=== PATIENT | male | born 1995 | race Caucasian/White ===

== ENCOUNTER 2024-12-31 07:00 | Emergency (ER) | payer SELFPAY ==
[2024-12-31] MEDS ORDERED: Ondansetron PF 4 MG/2 ML Vial ONE (07:29)
[2024-12-31 07:32] LABS: #Basophils 0.2 thou/uL (0.0-0.2); #Eosinophils 0.2 thou/uL (0.0-0.7); #Lymphocytes 3.3 thou/uL (1.20-3.40); #Monocytes 0.6 thou/uL (0.11-0.59); #Neutrophils 4.7 thou/uL (1.40-6.50); %Basophils 1.8 % (0.0-1.0); %Eosinophils 2.7 % (0.0-10.0); %Lymphocytes 36.6 % (21.0-51.0); %Monocytes 6.6 % (0.0-10.0); %Neutrophils 52.3 % (42.0-75.0); Hematocrit 40.5 % (42.0-52.0); Hemoglobin 14.4 g/dL (14.0-18.0); Mean Corpuscular Hemoglobin 28.6 pg (27.0-31.0); Mean Corpuscular Volume 80.4 fl (78.0-98.0); Platelet Count 271 10x3/uL (130-400); Red Blood Cell (RBC) Count 5.03 mill/uL (4.70-6.10); White Blood Cell (WBC) Count 8.9 10x3/uL (4.8-10.8)
[2024-12-31] MEDS ORDERED: Pantoprazole 40 MG VIAL ONE (07:40)
[2024-12-31 07:46] LABS: ALT (SGPT) 15 U/L (Less than 45); AST (SGOT) 22 U/L (11-34); Albumin 4.1 g/dL (3.1-4.5); Alkaline Phosphatase 72 U/L (40-110); Anion Gap 18 mmol/L (10-20); BUN (Urea Nitrogen) 11 mg/dL (8.9-20.6); Bilirubin, Total 0.4 mg/dL (0.3-1.2); Calc. Creatinine Clearance 0 mL/min (70-130); Calcium 9.3 mg/dL (7.8-10.44); Carbon Dioxide 21 mmol/L (22-29); Chloride 105 mmol/L (98-107); Globulin 3.9 g/dL (2.4-3.5); Glucose 98 mg/dL (70-105); Lipase 25 U/L (8-78); Potassium 3.9 mmol/L (3.5-5.1); Sodium 140 mmol/L (136-145)
[2024-12-31 08:28] LABS: Glucose, Urine (Dipstick) Negative (Negative); Leukocyte Negative (Negative); Protein, Urine (Dipstick) Negative (Neg-Trace); Specific Gravity, Urine 1.020 (1.005-1.030)
== END 2024-12-31 09:50 | disposition home or self-care (01) ==
LOC: NAV ERS 07:00
DX: K52.9 Noninfective gastroenteritis and colitis, unspecified (principal); K92.0 Hematemesis; F17.290 Nicotine dependence, other tobacco product, uncomplicated
CPT/HCPCS: 80053; 81001; 83690; 85025; 96361; 96374; 96375; J2405; J2470; J7030